=== PATIENT | female | born 1985 | race Caucasian/White ===

== ENCOUNTER 2016-11-14 18:59 | Emergency (ER) | payer OTHER ==
--- NOTE | ~2016-11-14 | CT2 ---
[facility] A Service [facility] RADIOLOGY TEXT RESULTS PATIENT: TRUDI COLLINS LOCATION: SED : [birth year] UNIT #: [id number] AGE: [address]: Alek Rivera SEX: F ORDER DR: [id number] [address] [address] [id number] E MR#: [id number] Acc #: [id number] NAME: TRUDI COLLINS : 1985 SEX: F STUDY DATE/TIME: 11/14/2016 19:55 UNIT: SED ROOM: STUDY DESCRIPTION: CT Abd and Pelv W Cont Attending Physician: Alek Rivera P.A.-C. Ordering Physician: Alek Rivera P.A.-C. [facility] REPORT This report is preliminary unless electronic signature is present. EXAM CT scan of the abdomen and pelvis with contrast, 11/14/2016 HISTORY Left lower quadrant abdominal pain and painful urination beginning at 3:00 a.m. today. TECHNIQUE Spiral CT was performed through the abdomen and pelvis following intravenous contrast administration only, as per clinician request. This CT exam was performed with one or more of the following radiation dose reduction techniques: Automatic exposure control, adjustment of mA and/or kV according to patient size, and iterative reconstruction. FINDINGS ABDOMEN: The exam is limited by the lack of oral contrast. The liver, spleen, pancreas, gallbladder and biliary tree, adrenal glands and kidneys are normal. PELVIS FINDINGS: The gut, mesenteric and nory structures are normal. There is a 3-cm cyst on the left ovary. This would be better evaluated with pelvic ultrasound, if clinically indicated. No free fluid is seen in the abdomen or pelvis. The lung bases are normal. IMPRESSION 1. 3-cm cyst on the left ovary. This would be better evaluated with pelvic ultrasound, if clinically indicated. Otherwise, negative CT scan of the abdomen and pelvis. 2. Exam is somewhat limited by the lack of oral contrast. Dictated by... [facility] A Service of [facility] RADIOLOGY TEXT RESULTS PATIENT: TRUDI COLLINS LOCATION: [facility] : [birth year] UNIT #: [id number] AGE: [address]: Alek Rivera PAC SEX: F ORDER DR: Praveen Roberson M.D. THIS IS AN ELECTRONICALLY VERIFIED REPORT Praveen Roberson M.D. at 11/15/2016 2:18 PM KRT/psc TD: 11/15/2016 04:41 JOB #: [id number] MEDICAL IMAGING REPORT
[~2016-11-14 18:59] MED LIST: (NONE)1 TAB PO; ACYCLOVIR200 MG PO; AMOXICILLIN PO; AUGMENTIN875 MG PO; AZO STANDARD97.5 MG; BACTRIM DS TABL1 TA1 PO; CIPRO PO; DEPO-PROVER150 MG/ML INJ; DICLOFENAC PO; FLEXERIL PO; GYNE-LOTRIMIN45 GM TOP; IBUPROFEN100 M1; LORTAB 5/500 TA1 TA1 PO; MACROBID 100 M100 MG PO; MACROBID100 MG PO; MIRALAX255 GM PO; MOTRIN400 MG PO; NO MEDICATIONS; PERCOCET 5/321 UDTAB PO; PHENERGAN25 M1 PO; PHENERGAN25 MG PO; PREDNISONE PO; PROAIR HFA8.5 GM INH; ROBITUSSIN-DM118 M1 PO; TAMIFLU75 M1 PO; TUSSIONEX PENN473 ML PO; VOLTAREN50 MG PO; VOLTAREN75 MG PO; ZITHROMAX PO; ZITHROMAX1 G/PKT PO; [UNRECOGNIZED DRUG - OTHER] PO
[2016-11-14 19:09] LABS: URINE SOURCE CLEAN CATCH
[2016-11-14 19:10] LABS: URINE APPEARANCE CLEAR; URINE BILIRUBIN NEG (NEG); URINE BLOOD TRACE-INTACT (NEG); URINE COLOR YELLOW; URINE GLUCOSE NEG (NORM); URINE KETONE NEG (NEG); URINE LEUKOCYTE ESTERASE NEG (NEG); URINE NITRATE NEG (NEG); URINE PROTEIN NEG (NEG)
[2016-11-14 19:11] LABS: MICRO INDICATED? YES
[2016-11-14 19:15] LABS: CULTURE INDICATED? NO; URINE BACTERIA NEG (NEG); URINE WBC 0-2 /[HPF] (0-5)
[2016-11-14 19:16] LABS: URINE SQUAMOUS EPITHELIAL CELL OCCAS /[HPF]
[2016-11-14 19:21] LABS: BASOPHIL% 0.2 % (0-2.5); DIFF IND NO; EOSINOPHIL# 0.1 X10e3 (0-0.7); EOSINOPHIL% 0.9 % (0.0-7.0); HEMATOCRIT 42.2 % (35.0-45.0); HEMOGLOBIN 14.4 gm/dL (12.0-16.0); LYMPHOCYTE# 2.9 X10e3 (1.0-3.5); LYMPHOCYTE% 25.4 % (17.0-45.0); MEAN CELL VOLUME 92.6 FL (83-96); MEAN CORPUSCULAR HEMOGLOBIN 31.7 PG (28-34); MEAN CORPUSCULAR HGB CONC 34.2 g/dL (30-36); MEAN PLATELET VOLUME 7.1 FL (6.5-11.5); MONOCYTE# 0.5 X10e3 (0-1.0); MONOCYTE% 4.1 % (3.0-12.0); NEUTROPHIL# 7.9 X10e3 (1.5-7.1); NEUTROPHIL% 69.4 % (40-75); PLATELET COUNT 261 X10e3 (140-420); RED BLOOD COUNT 4.56 X10e (3.90-5.30); RED CELL DISTRIBUTION WIDTH 13.5 % (11.0-15.5); WHITE BLOOD COUNT 11.4 X10e3 (4.0-10.5)
[2016-11-14 19:36] LABS: ALBUMIN SERUM 3.8 g/dL (3.5-5.0); ALKALINE PHOSPHATASE 62 U/L (32-92); ALT (SGPT) 18 U/L (10-40); AST (SGOT) 21 U/L (10-42); BILIRUBIN, DIRECT 0.1 mg/dL (0.0-0.2); BILIRUBIN,INDIRECT 0.7 mg/dL (0.0-0.9); BILIRUBIN,TOTAL 0.8 mg/dL (0.2-2.0); BLOOD UREA NITROGEN 5 mg/dL (9-23); BUN/CREATININE RATIO 8.33; CALCIUM SERUM 9.1 mg/dL (8.4-10.2); CARBON DIOXIDE 28 mmol/L (22-31); CHLORIDE 102 mmol/L (100-111); CREATININE SERUM 0.6 mg/dL (0.6-1.4); GLOM FILT RATE Estimated ABOVE60 mL/min (>60); GLUCOSE FASTING 128 mg/dL (70-110); LIPASE 22 U/L (22-51); POTASSIUM 3.5 mmol/L (3.5-5.1); PROTEIN TOTAL SERUM 7.1 g/dL (6.0-8.3); SODIUM 137 mmol/L (135-145)
== END 2016-11-14 21:34 | disposition home or self-care (01) ==
LOC: SED 18:59
PROVIDERS: Physician Assistant
DX: N83.202 Unspecified ovarian cyst, left side (principal); F17.200 Nicotine dependence, unspecified, uncomplicated; Z90.710 Acquired absence of both cervix and uterus; Z98.51 Tubal ligation status; Z98.890 Other specified postprocedural states
CPT/HCPCS: 36415; 74177; 80048; 80076; 81003; 83690; 85025; 96361; 96374; 96375; 99284; J2270; J2405; Q9967

== ENCOUNTER 2016-11-29 10:42 | Emergency (ER) | payer OTHER ==
--- NOTE | ~2016-11-29 | CR63 ---
[facility] A Service of [facility] RADIOLOGY TEXT RESULTS PATIENT: TRUDI COLLINS LOCATION: SED : [birth year] UNIT #: [id number] AGE: [address]: RUDDY RED SEX: F ORDER DR: [id number] [place] [id number] E MR#: [id number] Acc #: [id number] NAME: TRUDI COLLINS : 1985 SEX: F STUDY DATE/TIME: 11/29/2016 10:46 UNIT: SED ROOM: STUDY DESCRIPTION: CR Chest 2 View Attending Physician: Ruddy Red Aprn Ordering Physician: Physician Non-Staff Primary Care Physician: Count Includes [facility] REPORT This report is preliminary unless electronic signature is present. EXAM Chest x-ray HISTORY Cough and congestion for the past several days. COMPARISON 05/29/2012 TECHNIQUE 2 views of the chest were obtained. FINDINGS PA and lateral examination of the chest upright shows a good expansion of the parenchyma with a normal distribution of the pulmonary vascularity. There is no indication of congestion, effusion, infiltrate, tumor, or nodular density. The pleural reflections and diaphragmatic contours are normal. The cardiac silhouette and mediastinal anatomy is within normal limits. IMPRESSION Normal chest. Dictated by... Chris Bronson M.D. THIS IS AN ELECTRONICALLY VERIFIED REPORT Chris Bronson M.D. at 11/29/2016 3:44 PM GUILLE/geni TD: 11/29/2016 12:15 JOB #: [id number] [facility] A Service [facility] RADIOLOGY TEXT RESULTS PATIENT: TRUDI COLLINS LOCATION: SED : [birth year] UNIT #: [id number] AGE: [address]: RUDDY RDE SEX: F ORDER DR: MEDICAL IMAGING REPORT Page 1 of 1
[2016-11-29 11:37] LABS: INFLUENZA A NEG (NEG); INFLUENZA B NEG (NEG)
== END 2016-11-29 11:45 | disposition home or self-care (01) ==
LOC: SED 10:42
PROVIDERS: Nurse Practitioner Family
DX: J06.9 Acute upper respiratory infection, unspecified (principal); F17.210 Nicotine dependence, cigarettes, uncomplicated; Z90.710 Acquired absence of both cervix and uterus
CPT/HCPCS: 71020; 87651; 87804; 99283

== ENCOUNTER 2017-05-14 15:47 | Emergency (ER) | payer OTHER ==
[~2017-05-14] VITALS: Ht 154.9 cm; Wt 59.0 kg
--- NOTE | ~2017-05-14 | CR195 ---
[facility] A Service [facility] RADIOLOGY TEXT RESULTS PATIENT: TRUDI COLLINS LOCATION: SED : [birth year] UNIT #: [id number] AGE: [address]: Shaheed Aguila MD SEX: F ORDER DR: [id number] [place] [id number] E MR#: [id number] Acc #: [id number] NAME: TRUDI COLLINS : 1985 SEX: F STUDY DATE/TIME: 05/14/2017 17:16 UNIT: SED ROOM: STUDY DESCRIPTION: CR Neck Soft Tissue Attending Physician: Shaheed Aguila M.D. Ordering Physician: Shaheed Aguila M.D. Primary Care Physician: [facility] MEDICAL IMAGING REPORT This report is preliminary unless electronic signature is present. EXAM Neck soft tissue plain films, 05/15/2017 COMPARISON None. HISTORY Throat pain for 3 days. Ear and throat pain with swelling in the right lower jaw. FINDINGS 2 views of neck soft tissue were obtained. The cervical spine appears to be within normal limits. The prevertebral soft tissues are of expected size. Aerodigestive tract does not demonstrate any significant abnormality. If there is persistent clinical concern, CT neck with contrast can be considered for evaluation of abscess and other acute significant abnormality. Dictated by... Kassie Varela M.D. THIS IS AN ELECTRONICALLY VERIFIED REPORT Kassie Varela M.D. at 05/15/2017 7:09 PM CPR/ljd TD: 05/15/2017 05:20 JOB #: [id number] MEDICAL IMAGING REPORT [facility] A Service [facility] RADIOLOGY TEXT RESULTS PATIENT: TRUDI COLLINS LOCATION: SED : [birth year] UNIT #: [id number] AGE: [address]: Shaheed Aguila MD SEX: F ORDER DR: Page 1 of 1
== END 2017-05-14 18:19 | disposition home or self-care (01) ==
LOC: SED 15:47
DX: H66.91 Otitis media, unspecified, right ear (principal); K11.20 Sialoadenitis, unspecified; Z90.710 Acquired absence of both cervix and uterus; F17.210 Nicotine dependence, cigarettes, uncomplicated
CPT/HCPCS: 70360; 87651; 99283